=== PATIENT | male | born 1975 | race Caucasian/White ===

== ENCOUNTER 2020-10-26 09:59 | Outpatient (NON) | payer OTHER, SELFPAY ==
[2020-10-26 22:17] LABS: SARS-CoV-2 RNA PCR Negative
== END 2020-10-26 10:00 ==
PROVIDERS: PCP Internal Medicine; Visit Provider Internal Medicine
DX: R68.89 Other general symptoms and signs (principal); Z20.822 Contact with and (suspected) exposure to COVID-19
CPT/HCPCS: C9803; U0003

== ENCOUNTER 2024-11-20 13:39 | Emergency (ER) | payer OTHER, SELFPAY ==
[2024-11-20 13:51] VITALS: BP 139/75; PULSE 98; RESP 16; TEMP 38.8; O2SAT 98
--- OUTSIDE RECORDS SUMMARY | 2024-11-20 14:29 | XMS_ITS | Referral Summary ---
Author Organization [facility] Address [address] [place] [address] Care Team Providers Care Marine Mechanic Name Role Phone Unavailable Primary Care Provider Unavailabl e Source Comments [facility],non-owned Affiliates and Associated Physician Practices is amultiple site organization consisting of ambulatory clinics and hospital sitesin [place], [place], [place] and [place]. This disclosure is being madepursuant to the Care Everywhere program and may not contain all information available regarding this patient. Last updated 18.[facility] Allergies No known active allergies Medications * Be aware that medications may not be up to date on this document. Alwaysverify current medications with the patient. Medication Sig Dispensed Refills Start Date End Date Status amLODIPine-benazepril (LOTREL) 5-20 MG capsule 12/28/2017 Active atorvastatin (LIPITOR) 40 MG tablet 08/16/2017 Active pantoprazole EC (PROTONIX) 40 MG tablet Take 40 mg by mouth Active ASPIRIN 81 PO Active Social History Tobacco Use Types Packs/Day Years Used Date Smoking Tobacco: Never Smokeless Tobacco: Never Tobacco Cessation:Counseling Given: Yes Sex and Gender Information Value Date Recorded Sex Assigned at Not on file Gender Identity Not on file Sexual Orientation Not on file Last Filed Vital Signs Vital Sign Reading Time Taken Comments Blood Pressure 128/76 11/21/2019 12:19 PM PAPER COATING SUPERVISOR Pulse 79 11/21/2019 12:19 PM PAPER COATING SUPERVISOR Temperature 37.5 ??C (99.5 ??F) 11/21/2019 12:[address] Respiratory Rate 16 11/21/2019 12:19 PM PAPER COATING SUPERVISOR Oxygen Saturation 98% 11/21/2019 12:19 PM PAPER COATING SUPERVISOR Inhaled Oxygen Concentration - - Weight 124.7 kg (275 lb) 11/21/2019 12:19 PM PAPER COATING SUPERVISOR Height 182.9 cm (6') 11/21/2019 12:19 PM PAPER COATING SUPERVISOR Body Mass Index 37.3 11/21/2019 12:19 PM PAPER COATING SUPERVISOR Plan of Treatment Not on file Damian Ta Personal/Family Self 1975 [address] [place] [address]
--- OUTSIDE RECORDS SUMMARY | 2024-11-20 14:29 | XMS_ITS | Clinical Summary ---
Author Organization [facility] Address [address] [place] [address] Phone Care Team Providers Care Funeral Planning Counselor Name Role Phone Anju Jiménez APRN, MEREDITH Primary Care P rovider Brandon Almanza MD Unavailable Allergies No known active allergies Medications aspirin EC 81 MG Tablet Delayed Response Take 81 mg by mouth daily. Active Cholecalciferol (VITAMIN D PO) Take 1 Tablet by mouth once a week. Active Trintellix 20 MG Tablet Take 1 Tablet by mouth daily. 2 Active busPIRone (BUSPAR) 10 MG Tablet Take 10 mg by mouth 2 times daily. 2 Active metoprolol Succinate (TOPROL-XL) 50 MG TABLET SR 24 HRIndications:Ess ential hypertension Take 1 Tablet by mouth daily. 90 Tablet 3 3 Active cetirizine (ZyrTEC) 10 MG TabletIndications :Irritant contact dermatitis due to plants, except food Take 1 Tablet by mouth daily. 4 Active pantoprazole (PROTONIX) 40 MG Tablet Delayed Response Take 1 tablet by mouth once daily 90 Tablet 1 4 Active amLODIPine-benaze pril (LOTREL) 5-20 MG CapsuleIndication s:Essential hypertension,TIA (transient ischemic attack) TAKE 1 CAPSULE BY MOUTH NIGHTLY 90 Capsule 4 Active atorvastatin (LIPITOR) 80 MG TabletIndications :Essential hypertension,TIA (transient ischemic attack) Take 1 Tablet by mouth daily. 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, 10-15 excised in the past, several lesions on scalp today concerning for BCC, shave biopsy x 6 performed, sun protection, regular MD skin exams, RTC 3 months Resolved Problems Problem Noted Date Diagnosed Date Resolved Date Hypersomnia 11/23/2017 09/12/2022 Encounters Date Type Department Care Team Description 09/07/2024 MyChart RX Renewal [facility] [address] [place] [address] Anju Jiméenz APRN, CNP Medication Renewal Reviewed 09/02/2024 Refill [facility] [address] [place] [address] Anju Jiménez APRN, CNP Medication Refill from Last 3 Months Immunizations Immunization Administration Dates Next Due COVID-19, Mrna, Lnp-s, Pf, 5 0 mcg/0.5 mL 09/07/2024 Covid-19, Mrna, Lnp-s, PF, 1 00 mcg/0.5 mL Dose (Moderna) 12/31/2020,12/03/2020 Covid-19, Mrna, Lnp-s, Pf, 5 0 Mcg/0.5 Ml Dose 07/27/2023 Influenza Vaccine, Quadrivalent, PF 06/23,07/20/2023,07/28/2022,2020,07/30/2020,07/12/2018,07/27/2017 Influenza,Split Virus,Trivalent,Injectable,PF 07/09/2024 TDAP Vaccine 02/17/2021 Family History Medical History Relation Name Comments Clotting Disorder Father Diabetes Father Cancer Maternal Cousin testicular Clotting Disorder Paternal Aunt Clotting Disorder Paternal Grandfather Clotting Disorder Paternal Uncle Relation Name Status Comments Father Alive Maternal Cousin Mother Alive Paternal Aunt Paternal Grandfather Paternal Uncle Social History Tobacco Use Types Packs/Day Years Used Date Smoking Tobacco: Never Smokeless Tobacco: Never Tobacco Cessation:Counseling Given: Not Answered Alcohol Use Standard Drinks/Week Comments Never 0 (1 standard drink = 0.6 oz pur e alcohol) [facility] Utilities Answer Date Recorded In the past 12 months has e electric, gas, oil, or water [employer] threatened to shut off services in your home? No 03/24/2024 Social Connection and Isolat ion Panel [NHANES] Answer Date Recorded In a typical week, how many times do you talk on the phone with family, friends, or neighbors? More than three times a week 03/24/2024 How often do you get togethe r with friends or relatives? Twice a week 03/24/2024 How often do you attend chur ch or worship services? Never 03/24/2024 Do you belong to any clubs o r organizations such as yazidism groups, unions, fraternal or athletic groups, or school groups? No 03/24/2024 How often do you attend meet ings of the clubs or organizations you belong to? Never 03/24/2024 Are you , , di vorced, , never , or living with a partner? 03/24/2024 AUDIT-C Answer Date Recorded Q1: How often do you have a drink containing alc ohol? Monthly or less 03/24/2024 Q2: How many drinks containi ng alcohol do you have on a typical day when you are drinking? 1 or 2 03/24/2024 Q3: How often do you have si x or more drinks on one occasion? Never 03/24/2024 Overall Financial Resource Strain (CARDIA) Answe r Date Recorded How hard is it for you to pa y for the very basics like food, housing, medical care, and heating? Not hard at all 03/24/2024 PHQ-2 Answer Date Recorded Total Score - Questions 1-9 5 04/2021 [facility] of Occupat ional Health - Occupational Stress Questionnaire Answer Date Recorded Do you feel stress - tense, restless, nervous, or anxious, or unable to sleep at night because your mind is troubled all the time - these days? Only a little 03/24/2024 Exercise Vital Sign Answer Date Recorde d On average, how many days pe r week do you engage in moderate to strenuous exercise (like a brisk walk)? 0 days 03/24/2024 On average, how many minutes do you engage in exercise at this level? 0 min 03/24/2024 Hunger Vital Sign Answer Date Recorded Within the past 12 months, y ou worried that your food would run out before you got the money to buy more. Never true 03/24/20 24 Within the past 12 months, t he food you bought just didn't last and you didn't have money to get more. Never true 03/24/2024 PRAPARE - Transportation Answer Date Re corded In the past 12 months, has l ack of transportation kept you from medical appointments or from getting medications? No 11/2023 In the past 12 months, has l ack of transportation kept you from meetings, work, or from getting things needed for daily living? No 03/24/2024 Housing Stability Vital Sign Answer John e Recorded In the last 12 months, was t here a time when you were not able to pay the mortgage or rent on time? No 03/24/2024 In the last 12 months, how many places have you lived? 1 03/24/2024 In the last 12 months, was t here a time when you did not have a steady place to sleep or slept in a fci (including now)? No 03/24/2024 Education Answer Date Recorded What is the highest level of school you have completed or the highest degree you have received? Associate degree: occupational, technical, or vocational program 03/06/2023 Sexually Active Control Partners Comments Not Currently Female Sex and Gender Information Value Date Recorded Sex Assigned at Male 12/26/2023 4:03 PM UNDERWRITING CLERKS SUPERVISOR Legal Sex Male 11:25 PM CDT Gender Identity Male 12/26/2023 4:03 PM UNDERWRITING CLERKS SUPERVISOR Sexual Orientation Straight 12/26/2023 4: 03 PM UNDERWRITING CLERKS SUPERVISOR Occupation Industry Job Start Date Job End Date [employer] Not on file Not on file Not on file Last Filed Vital Signs Vital Sign Reading Time Taken Comments Blood Pressure 114/86 07/09/2024 1:40 PM CDT Pulse 62 07/09/2024 1:40 PM CDT Temperature 37 ??C (98.6 ??F) 07/09/2024 1:40 PM CDT Respiratory Rate 20 07/09/2024 1:40 PM CDT Oxygen Saturation 99% 07/09/2024 1:40 PM CDT Inhaled Oxygen Concentration - - Weight 137.2 kg (302 lb 6 oz) 07/09/2024 1:40 PM CDT Height 182.9 cm (6') 07/09/2024 1:40 PM CDT Body Mass Index 41.01 07/09/2024 1:40 PM CDT Plan of Treatment Health Maintenance Due Date Last Done Comments Colonoscopy 06/21/2027 06/21/2022 Colorectal Cancer Screening 06/21/2027 Td Immunization Every 10 Years (Adults With 1 Tdap) 02/17/2031 02/17/2021 Respiratory Syncytial Virus (RSV) Immunization (Adult) (1 - 1-dose 75+ series) 2051 06/21/2022 DTaP/Tdap/Td Immunization Discontinued 02/17/2021 Hepatitis C Virus (HCV) Screening Completed 09/11/2023 Influenza Immunization Completed 4, 07/09/2024, 07/20/2023, Additional history exists SARS-COV-2 Immunization Completed 09/07/20 24, 07/27/2023, 07/27/2023, Additional history exists Hepatitis B Immunization Discontinued Meningococcal Immunization (ACWY) Aged Out No longer eligible based on patient's age to complete this topic Pneumococcal Immunization Combined Aged Out No longer eligible based on patient's age to complete this topic Rotavirus Immunization Aged Out No lo nger eligible based on patient's age to complete this topic Goals Goal Patient Goal Type Associated Problems Recent Progress Patient-Stated? Author I need a place to talk about the divorce and what happened. Behavioral Health On track( 024 9:22 AM UNDERWRITING CLERKS SUPERVISOR) Yes Nelly Mendieta LCSW Note: Goal/Objective: Improve coping with pending separation/divorce. Anticipated Time Frame for Goal Completion: 6 months Goal Reviewed with: patient Readiness to change: Ready to change Department associated with goal: [facility] Steps to achieve goal: will attend psychotherapy/counseling monthly at least 6 sessions and self disclose to have an outlet for distressing thoughts and feelings. will build insight regarding triggers, both internal and external; pt will be able to identify at least two internal and two external triggers to low and anxious moods. Will identify at least two skills/strategies to use when a triggering event occurs Behavioral Health No Nelly Mendieta, ATG ARCHITECT Procedures Procedure Name Priority Date/Time Associated Diagnosis Comments HEPATITIS C ANTIBODY Routine 09/11/2023 8:04 AM UNDERWRITING CLERKS SUPERVISOR Encounter for HCV screening test for low risk patient from Last 3 Months or Most Recently Relevant to Health Maintenance Results * HEPATITIS C ANTIBODY (09/11/2023 8:04 AM UNDERWRITING CLERKS SUPERVISOR) hepatitis C antibody 0.09 <1 S/CO [facility] ARCH [id number] B 09/11/2023 9:14 PM UNDERWRITING CLERKS SUPERVISOR [facility] Comment: Signal/Cutoff ratio ??< 0.79 is Nondetected Signal/Cutoff ratio 0.80-0.99 is Grayzone Signal/Cutoff ratio > 0.99 is Detected Supplemental assays are recommended if signal/cutoff ratio is >/=1.00. ??Signal/cutoff ratio result >/= 5.00 is 97% predictive of positivity for recombinant immunoblot assay (RIBA) and will be reported to the [place] Department of Public Health as required. Blood Venipuncture / Unknown 09/11/2023 8:04 AM UNDERWRITING CLERKS SUPERVISOR 09/11/2023 8:04 AM UNDERWRITING CLERKS SUPERVISOR us Anju Jiménez APRN, MEREDITH CHEMISTRY ORDER TYREE Final Result [facility] [address] [place] [address], [place] from Last 3 Months or Most Recently Relevant to Health [place] [id number] [place] [id number] [employer] Care Teams Funeral Planning Counselor Relationship Specialty Start Date End Date Anju Jiménez APRN, BIOMEDICAL INSTRUMENT TECHNICIAN [address] [place] [address] PCP - General Advanced Practice Nurse 02/17/21 Brandon Almanza MD [address] [phone] Consulting Physician General Surgery 04/05/22
--- OUTSIDE RECORDS SUMMARY | 2024-11-20 14:29 | XMS_ITS | Encounter Summary ---
Author Organization [facility] Address [address] [place] [address] Phone Care Team Providers Care Internet Marketing Coordinator Name Role Phone Anju Jiménez APRN, CNP Primary Care P rovider Brandon Almanza MD Unavailable [phone] Reason for Visit * Reason Comments Medication Refill Encounter Details Date Type Department Care Team (Late st Contact Info) Description 02/03/2024 Refill [facility] - Primary Care - [place] [address] [place] [address] Anju Jiménez APRN, CNP [address] [place] [address] Medication Refill Social History Tobacco Use Types Packs/Day Years Used Date Smoking Tobacco: Never Smokeless Tobacco: Never Alcohol Use Standard Drinks/Week Comments Never 0 (1 standard drink = 0.6 oz pur e alcohol) [facility] Utilities Answer Date Recorded In the past 12 months has [employer], gas, oil, or water company threatened to shut off services in your home? No 12/22/2023 Social Connection and Isolat ion Panel [NHANES] Answer Date Recorded In a typical week, how many times do you talk on the phone with family, friends, or neighbors? More than three times a week 12/22/2023 How often do you get togethe r with friends or relatives? More than three times a week 12/22/2023 How often do you attend chur ch or restorationist services? 1 to 4 times per year 12/22/2023 Do you belong to any clubs o r organizations such as pentecostalism groups, unions, fraternal or athletic groups, or school groups? No 12/22/2023 How often do you attend meet ings of the clubs or organizations you belong to? 1 to 4 times per year 12/22/2023 Are you , , di vorced, , never , or living with a partner? 12/22/2023 AUDIT-C Answer Date Recorded Q1: How often do you have a drink containing alcohol? Never 12/22/2023 Q2: How many drinks containi ng alcohol do you have on a typical day when you are drinking? Patient does not drink Q3: How often do you have si x or more drinks on one occasion? Never 12/22/2023 Overall Financial Resource Strain (CARDIA) Answe r Date Recorded How hard is it for you to pa y for the very basics like food, housing, medical care, and heating? Not very hard 12/22/2023 PHQ-2 Answer Date Recorded Total Score - Questions 1-9 5 04/2021 [facility] of Occupat ional Health - Occupational Stress Questionnaire Answer Date Recorded Do you feel stress - tense, restless, nervous, or anxious, or unable to sleep at night because your mind is troubled all the time - these days? Not at all 12/22/2023 Exercise Vital Sign Answer Date Recorde d On average, how many days pe r week do you engage in moderate to strenuous exercise (like a brisk walk)? 3 days 12/22/2023 On average, how many minutes do you engage in exercise at this level? 60 min 12/22/2023 Hunger Vital Sign Answer Date Recorded Within the past 12 months, y ou worried that your food would run out before you got the money to buy more. Never true 12/22/19 24 Within the past 12 months, t he food you bought just didn't last and you didn't have money to get more. Never true 12/22/2023 PRAPARE - Transportation Answer Date Re corded In the past 12 months, has l ack of transportation kept you from medical appointments or from getting medications? No 10/2023 In the past 12 months, has l ack of transportation kept you from meetings, work, or from getting things needed for daily living? No 12/22/2023 Housing Stability Vital Sign Answer John e Recorded In the last 12 months, was t here a time when you were not able to pay the mortgage or rent on time? No 12/22/2023 In the last 12 months, how many places have you lived? 2 12/22/2023 In the last 12 months, was t here a time when you did not have a steady place to sleep or slept in a nursing home (including now)? No 12/22/2023 Education Answer Date Recorded What is the highest level of school you have completed or the highest degree you have received? Associate degree: occupational, technical, or vocational program 03/06/2023 Sexually Active Control Partners Comments Not Currently Female Sex and Gender Information Value Date Recorded Sex Assigned at Male 12/26/2023 4:03 PM EXHIBIT CLEANER Legal Sex Male 11:25 PM CDT Gender Identity Male 12/26/2023 4:03 PM EXHIBIT CLEANER Sexual Orientation Straight 12/26/2023 4: 03 PM EXHIBIT CLEANER Occupation Industry Job Start Date Job End Date [employer] Not on file Not on file Not on file documented as of this encounter Miscellaneous Notes * Telephone Encounter - Nilesh Elizabeth RN - 02/05/2024 1:36 PM CDT Medication(s) [facility] and [facility] Chronic Medication Refill Standing Order for Pediatricand Adult Patients. Requested Prescriptions Pending Prescriptions Disp Refills pantoprazole (PROTONIX) 40 MG Tablet Delayed Response [Pharmacy Med Name: Pantoprazole Sodium 40 MGOral Tablet Delayed Release] 90 Tablet 0 Sig: Take 1 tablet by mouth once daily Proton Pump Inhibitors Protocol Passed - 02/03/2024 7:19 PM Passed - Visit with relevant provider in past 12 months or upcoming 90 days Recent Visits Date Type Provider Dept 12/22/23 Office Visit Romaine Matos, PAC [facility] 09/18/23 Office Visit Anju Jiménez, PHARMACY SALESPERSON, INSURANCE ADJUSTOR [facility] 03/13/23 Office Visit Anju Jiménez APRN, CNP [facility] Showing recent visits within past 365 days and meeting all other requirements Future Appointments Date Type Provider Dept 03/19/24 Appointment Lab, [facility] 03/26/24 Appointment Anju Jiménez APRN, CNP [facility] Showing future appointments within next 90 days and meeting all other requirements documented in this encounter Plan of Treatment Not on file documented as of this encounter Goals Goal Patient Goal Type Associated Problems Recent Progress Patient-Stated? Author I need a place to talk about the divorce and what happened. Behavioral Health On track( 024 9:22 AM EXHIBIT CLEANER) Yes Nelly Mendieta LCSW Note: Goal/Objective: Improve coping with pending separation/divorce. Anticipated Time Frame for Goal Completion: 6 months Goal Reviewed with: patient Readiness to change: Ready to change Department associated with goal: [facility] Steps to achieve goal: [...] triggering event occurs Behavioral Health No Nelly Mendieta LCSW documented as of this encounter Visit Diagnoses Not on filedocumented in this encounter Additional Health Concerns Assessment Noted Time PHQ-9 Depression Total Score: 5 03/29/20 21 2:00 PM CDT documented as of this encounter Care Teams Internet Marketing Coordinator Relationship Specialty Start Date End Date Anju Jiménez APRN, CNP [address] [place] [address] PCP - General Advanced Practice Nurse 02/17/21 Brandon Almanza MD [address] [phone] Consulting Physician General Surgery 04/05/22 documented as of this encounter
--- OUTSIDE RECORDS SUMMARY | 2024-11-20 14:29 | XMS_ITS | Clinical Summary ---
Author Organization [facility] Address [address] [facility] [address] [place] [address] Phone Care Team Providers Care Recruiter Name Role Phone Aguilar Medel MD, Jhon Renae Primary Care Provider Adolph Guajardo MD Unavailable [phone] Allergies No known active allergies Medications aspirin 81 mg tablet Take 1 tablet (81 mg total) by mouth daily Active atorvastatin (LIPITOR) 80 mg tablet Take 1 tablet (80 mg total) by mouth daily 30 tablet 9 Active amlodipine-benazepr il (LOTREL 5-20) 5-20 mg per capsule Take 1 capsule by mouth daily 9 Active busPIRone (BUSPAR) 10 mg tablet Take 1 tablet (10 mg total) by mouth 2 (two) times a day 1 Active Trintellix 20 mg tablet Take 1 tablet (20 mg total) by mouth daily 2 Active metoprolol XL (TOPROL-XL) 50 mg extended release tablet Take 1 tablet (50 mg total) by mouth daily [address] (PROTONIX) 40 mg EC tablet Take 1 tablet (40 mg total) by mouth daily 3 Active cholecalciferol (VITAMIN D-3) 71853 unit tablet Take 1,250 mcg by mouth every 7 days Active HYDROcodone-acetami nophen (NORCO) 5-325 mg per tabletIndications:P ain Take 1 tablet by mouth every 6 (six) hours as needed for pain 20 tablet 3 Active ondansetron ODT (ZOFRAN-ODT) 8 mg disintegrating tabletIndications:P revention of Post-Operative Nausea and Vomiting Take 1 tablet (8 mg total) by mouth every 8 (eight) hours as needed for nausea or vomiting 12 tablet 1 3 Active semaglutide (Wegovy) 0.25 mg/0.5 mL auto-injector Inject 0.5 mL (0.25 mg total) under the skin every 7 days Active cetirizine (ZyrTEC) 10 mg tablet Take 1 tablet (10 mg total) by mouth daily 4 Active sildenafiL (VIAGRA) 100 mg tablet Take 0.5 tablets (50 mg total) by mouth as needed 3 Active Active Problems Problem Noted Date Diagnosed Date Lipoma of flank 06/16/2023 Adjustment disorder 10/03/2022 Generalized anxiety disorder 05/06/2021 Major depression 05/06/2021 Psychophysiological insomnia 05/06/2021 Bipolar 2 disorder (CMS/HCC) 03/29/2021 High blood pressure 02/17/2021 History of stroke 10/31/2018 Obesity (BMI 30-39.9) 10/31/2018 Basal cell carcinoma 03/26/2018 Basal cell carcinoma of skin of scalp and neck 0 03/26/2018 Obstructive sleep apnea syndrome 11/23/2017 Severe obesity (BMI 35.0-35.9 with comorbidity) 11/23/2017 Hypersomnia 11/23/2017 History of nonmelanoma skin cancer 07/21/2017 Overview (02/02/2018): Description: history of whole brain radiation as a child, with the development of numerous BCCs on the scalp, 10-15 excised in the past, several lesions on scalp today concerning for BCC, shave biopsy x 6 performed, sun protection, regular MD skin exams, RTC 3 months Folliculitis 05/16/2011 Overview (02/02/2018): Description: Folliculitis Skin neoplasm 05/16/2011 Overview (02/02/2018): Description: Shave biopsy x 6 today for several concerning lesions on scalp. Wound care reviewed. F/u per pathology. Will more than likely need MMS. 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 Monthly or less 06/16/2023 Q2: How many drinks containi ng alcohol do you have on a typical day when you are drinking? 1 or 2 06/16/2023 Q3: How often do you have si x or more drinks on one occasion? Never 06/16/2023 PHQ-2 Answer Date Recorded PHQ-2 Score 0 06/15/2019 Personal Safety Answer Date Recorded Have you ever been in or are you currently in a harmful physical or emotional relationship or is someone making you feel afraid or unsafe? Denies 06/22/2023 Sex and Gender Information Value Date Recorded Sex Assigned at Not on file Legal Sex Male 11:50 PM DESIGN ANALYST Gender Identity Male 10/28/2020 2:30 PM DESIGN ANALYST Sexual Orientation Straight 10/28/2020 2: 30 PM DESIGN ANALYST Obstetrics History Last Filed Vital Signs Vital Sign Reading Time Taken Comments Blood Pressure 129/80 06/10/2024 9:55 AM CDT Pulse 68 06/10/2024 9:55 AM CDT Temperature 36.4 ??C (97.5 ??F) 06/22/2023 9:38 AM CD T Respiratory Rate 18 06/22/2023 9:45 AM CDT Oxygen Saturation 94% 06/10/2024 9:55 AM CDT Inhaled Oxygen Concentration - - Weight 135.2 kg (298 lb) 06/10/2024 9:55 AM CDT Height 182.9 cm (6') 06/10/2024 9:55 AM CDT Body Mass Index 40.42 06/10/2024 9:55 AM CDT Plan of Treatment Health Maintenance Due Date Last Done Comments Colon Cancer Screening-Colonoscopy 1976 Hepatitis C Screening 1976 Hepatitis B Screening 1994 Regular Well Visit/Exam 18-64 1994 Depression Screening 12/28/2019 12/27/2018 Covid-19 Vaccine ( season) 2024 12/31/2020, 12/03/2020 Influenza Vaccine (#1) 2024 3, 07/28/2022, 07/29/2021, Additional history exists DTaP/Tdap/Td Vaccine (2 - Td or Tdap) 02/17/2031 02/17/2021 Pneumococcal vaccine <65 Aged Out No longer eligible based on patient's age to complete this topic Insurance [facility] CHOICE PLUS [facility] [employer] [facility] [employer] Advance Directives For more information, please contact: [phone] * Full Code (Latest Code Status on File) Date Activated Date Inactivated Comments 12/27/2018 10:07 PM 12/29/2018 6:56 PM Care Teams Recruiter Relationship Specialty Start Date End Date Jhon Sheikh Jr., MD [address] [place] [address] PCP - General 09/25/17 Adolph Guajardo MD [address] [place] [address] [place] [address] Consulting Physician Neurology 12/29/18
--- OUTSIDE RECORDS SUMMARY | 2024-11-20 14:29 | XMS_ITS | Encounter Summary ---
Author Organization [facility] Address [address] [place] [address] Phone Care Team Providers Care Head Worker Name Role Phone Day Stanley MD Primary Care Provider [phone] Aguilar Medel MD, Jhon Renae Primary Care Provider Adolph Guajardo MD Unavailable [phone] Encounter Details Date Type Department Care Team (Late st Contact Info) Description 09/23/2017 Orders Only [facility] ProviderCarlos MD [address] [id number] Social History Tobacco Use Types Packs/Day Years Used Date Smoking Tobacco: Never Smokeless Tobacco: Never Alcohol Use Standard Drinks/Week Comments No 0 (1 standard drink = 0.6 oz pur e alcohol) Sex and Gender Information Value Date Recorded Sex Assigned at Not on file Legal Sex Male 11:50 PM MEN'S FURNISHINGS SALESPERSON Gender Identity Male 10/28/2020 2:30 PM MEN'S FURNISHINGS SALESPERSON Sexual Orientation Straight 10/28/2020 2: 30 PM MEN'S FURNISHINGS SALESPERSON documented as of this encounter Plan of Treatment Not on file documented as of this encounter Procedures Procedure Name Priority Date/Time Associated Diagnosis Comments DISCHARGE LABORATORY CUMULATIVE REPORT 09/23/2017 12:00 AM MEN'S FURNISHINGS SALESPERSON documented in this encounter Results * DISCHARGE LABORATORY CUMULATIVE REPORT (09/23/2017 12:00 AM MEN'S FURNISHINGS SALESPERSON) Narrative 09/23/2017 12:00 AM MEN'S FURNISHINGS SALESPERSON Ordered by an unspecified provider. 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
--- OUTSIDE RECORDS SUMMARY | 2024-11-20 14:29 | XMS_ITS | Referral Summary ---
Author Organization [facility] Address [address] [facility] [address] [place] [address] Phone Care Team Providers Care Applications Developer Name Role Phone Aguilar Medel MD, Jhon Renae Primary Care Provider Adolph Guajardo MD Unavailable [phone] Allergies No known active allergies Medications aspirin [...] mouth daily 3 Active cholecalciferol (VITAMIN D-3) 29487 unit tablet Take 1,250 mcg by mouth [...] need MMS. 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 Gender Identity Male 10/28/2020 2:30 PM SUPERVISOR [employer] Sexual Orientation Straight 10/28/2020 2: 30 PM SUPERVISOR [employer] FARMING Last Filed Vital Signs Vital Sign Reading [...] 06/10/2024 9:55 AM CDT Plan of Treatment Not on file Insurance [facility] CHOICE PLUS [facility] [employer] [facility] [employer] Advance Directives For more information, please contact: [phone] * Full Code (Latest Code Status on File) Date Activated Date Inactivated Comments 12/27/2018 10:07 PM 12/29/2018 6:56 PM Care Teams Applications Developer Relationship Specialty Start Date End Date Jhon Sheikh Jr., MD [address] [place] [address] PCP - General 09/25/17 Adolph Guajardo MD [address] [facility] [address] ALAN[place] [address] [place] [address] Consulting Physician Neurology 12/29/18
--- OUTSIDE RECORDS SUMMARY | 2024-11-20 14:29 | XMS_ITS ---
Author Organization [facility] Address [address] [facility] [address] [place] [address] Phone Care Team Providers Care Hat Brusher Machine Name Role Phone Aguilar Medel MD, Jhon Renae Primary Care Provider Adolph Guajardo MD Unavailable [phone] Active Problems Problem Noted Date Diagnosed Date [...] need MMS. TIA (transient ischemic attack) Paresthesia Current Oncology Plans No current plan information found. Past Plans No past plan information found. Radiation Treatments * No radiation treatments are documented for this [facility]. Treatments may have been administered in another system. Lifetime Dose Tracking * Chemical Lifetime Dose Automatic Entry Manual Entr y Fluoro Time 0.1 minutes 0.1 minutes 0 minutes Air kerma at the reference point (Ka,r) 4.5 mGy 4 .5 mGy 0 mGy
--- OUTSIDE RECORDS SUMMARY | 2024-11-20 14:29 | XMS_ITS | Patient Health Summary ---
Author Organization [facility] Address [address] [place] [address] Care Team Providers Care Urology Physician Name Role Phone Unavailable Primary Care Provider Unavailabl e Note from [facility],non-owned Affiliates and Associated Physician Practices is amultiple site organization consisting of ambulatory clinics and hospital sitesin [place], [place], [place] and [place]. This disclosure is being madepursuant to the Care Everywhere program and may not contain all information available regarding this patient. Last updated 18.[facility] Allergies No known active allergies Medications * Be aware that medications may not be up to date on this document. Alwaysverify current medications with the patient. * amLODIPine-benazepril (LOTREL) 5-20 MG capsule(Started 12/28/2017) * atorvastatin (LIPITOR) 40 MG tablet(Started 08/16/2017) * pantoprazole EC (PROTONIX) 40 MG tablet Take 40 mg by mouth * ASPIRIN 81 PO Social History Tobacco Use Types Packs/Day Years Used Date Smoking Tobacco: Never Smokeless Tobacco: Never Tobacco Cessation:Counseling Given: Yes Sex and Gender Information Value Date Recorded Sex Assigned at Not on file Gender Identity Not on file Sexual Orientation Not on file Last Filed Vital Signs Vital Sign Reading Time Taken Comments Blood Pressure 128/76 11/21/2019 12:19 PM INSULATION INSPECTOR Pulse 79 11/21/2019 12:19 PM INSULATION INSPECTOR Temperature 37.5 ??C (99.5 ??F) 11/21/2019 12:[address] Respiratory Rate 16 11/21/2019 12:19 PM INSULATION INSPECTOR Oxygen Saturation 98% 11/21/2019 12:19 PM INSULATION INSPECTOR Inhaled Oxygen Concentration - - Weight 124.7 kg (275 lb) 11/21/2019 12:19 PM INSULATION INSPECTOR Height 182.9 cm (6') 11/21/2019 12:19 PM INSULATION INSPECTOR Body Mass Index 37.3 11/21/2019 12:19 PM INSULATION INSPECTOR Procedures * INFLUENZA A+B - POINT OF CARE (AMB)(Performed 11/21/2019) Performed for Viral illness * STREP A SCREEN - POINT OF CARE (AMB) STL(Performed 11/21/2019) Performed for Acute pharyngitis, unspecified etiology * STREP A SCREEN - POINT OF CARE (AMB) STL(Performed 12/13/2018) Performed for Acute streptococcal pharyngitis Results * STREP A SCREEN - POINT OF CARE (AMB) STL (11/21/2019) Only the most recent of2 resultswithin the time period is included. Strep A Rapid POCT Negative Negative Strep A Internal Control Present Lot # [id number] Expiration Date 03/22/2021 Throat ENTIRE THROAT (SURFACE REGION OF NECK) / Unknown 11/21/2019 Iva Camp BENEFITS ADVISOR-CAROUSEL ATTENDANT LAB - POINT O F CARE ORDERABLES * INFLUENZA A+B - POINT OF CARE (AMB) (11/21/2019) Influenza A Antigen Rapid Negative Negative Influenza B Antigen Rapid Negative Negative Influenza Internal Control neg/pos NEGATIVE - POSITIVE Influenza Lot Number [id number] Influenza Expiration Date 08/06/2021 Other NASOPHARYNGEAL SWAB / Unknown 11/21/2019 Iva Camp BENEFITS ADVISOR-CAROUSEL ATTENDANT LAB - POINT O F CARE ORDERABLES
--- OUTSIDE RECORDS SUMMARY | 2024-11-20 14:29 | XMS_ITS | Patient Health Record ---
Author Organization [facility] Address [address] [place] [address] Care Team Providers Care Harness Preparer Name Role Phone Gilberto Woods Primary Care Provider Reason For Referral No Information Immunizations Vaccine Route Administration Date Status Comme nts COVID-19 Moderna 2nd IM Intramuscular 12/31/2020 Administered COVID-19 Moderna 1ST IM Intramuscular 12/03/2020 Administered EUA date 0. Screening reviewed and consent signed. Patient tolerated well. Plan Of Treatment No Information Insurance Providers Payer Name Payer Address Payer Phone Subscriber Number Group Number Insured Name Patient Relationship to Insured Coverage Start Date Coverage End Date [facility] [address] [place] [address] [id number] Damian Ta Self - patient is the insured 1
--- OUTSIDE RECORDS SUMMARY | 2024-11-20 14:29 | XMS_ITS | Clinical Summary ---
Author Organization [facility] Address [address] [place] [address] Care Team Providers Care Carpenters Supervisor Name Role Phone Unavailable Primary Care Provider Unavailabl e Source Comments [facility],non-owned Affiliates and Associated Physician Practices is amultiple site organization consisting of ambulatory clinics and hospital sitesin [place], [place], [place] and [place]. This disclosure is being madepursuant to the Care Everywhere program and may not contain all information available regarding this patient. Last updated 18.[facility] Allergies No known active allergies Medications * [...] Comments Blood Pressure 128/76 11/21/2019 12:19 PM PRINCIPAL BIOSTATISTICIAN Pulse 79 11/21/2019 12:19 PM PRINCIPAL BIOSTATISTICIAN Temperature 37.5 ??C (99.5 ??F) 11/21/2019 12:[address] Respiratory Rate 16 11/21/2019 12:19 PM PRINCIPAL BIOSTATISTICIAN Oxygen Saturation 98% 11/21/2019 12:19 PM PRINCIPAL BIOSTATISTICIAN Inhaled Oxygen Concentration - - Weight 124.7 kg (275 lb) 11/21/2019 12:19 PM PRINCIPAL BIOSTATISTICIAN Height 182.9 cm (6') 11/21/2019 12:19 PM PRINCIPAL BIOSTATISTICIAN Body Mass Index 37.3 11/21/2019 12:19 PM PRINCIPAL BIOSTATISTICIAN Plan of Treatment Health Maintenance Due Date Last Done Comments COLOGUARD (AGES 45-75) - COL ON CA SCREENING 1976 COLON MONITORING 1976 COLONOSCOPY - COLON CA SCREENING 1976 CT COLONOGRAPHY - COLON CA SCREENING 1976 Colorectal Cancer Screening 1976 FIT - COLON CA SCREENING 1976 FLEX SIG - COLON CA SCREENING 1976 HIV SCREENING 1991 HEPATITIS C SCREENING 09/14/1994 DTAP/TDAP/TD VACCINES (1 - Tdap) 1995 HEPATITIS B VACCINE (1 of 3 - 19+ 3-dose series) 1995 SCREENING FOR DIABETES 09/24/2018 COVID-19 VACCINE ( - 2023-2 5 season) 2024 INFLUENZA VACCINE (#1) 2024 DEPRESSION SCREENING 10/23/2024 ZOSTER VACCINE (1 of 2) 2026 HIB VACCINE Aged Out No longer eligi ble based on patient's age to complete this topic HPV VACCINE Aged Out No longer eligi ble based on patient's age to complete this topic MENINGOCOCCAL (Group B) VACCINE Aged Out No longer eligible based on patient's age to complete this topic MENINGOCOCCAL VACCINE Aged Out No hamida queta eligible based on patient's age to complete this topic PNEUMOCOCCAL VACCINE Aged Out No long er eligible based on patient's age to complete this topic Damian Ta Personal/Family Self 1975 [address] [place] [address]
--- NOTE | 2024-11-20 14:40 | PC.NURSE ---
Brought back from lobby. Swab obtained.
--- NOTE | 2024-11-20 16:08 | ED_ITS ---
HPI - URI/Sore Throat General Chief Complaint: Upper Respiratory Infection Stated Complaint: cough/aches Time Seen by Provider: 11/20/24 15:50 Source: patient, RN notes reviewed and old records reviewed Mode of arrival: ambulatory Limitations: no limitations History of Present Illness HPI Narrative: 49 year old male who presents to [facility] care with complaints of body aches, cough, with no fevers for 2 days, has had runny nose for the past 2 weeks.. Patient reports that he has not had any fever till noted today in triage. Patient reports that he has been taking DayQuil, Robitussin, and Sudafed for his symptoms, Patient reports that he did take a flu shot this year, works in IT at [employer]. MD elicited complaint: fever (noted in triage), cough, rhinorrhea, nasal congestion and other (body aches) Onset (ago): day(s) (2 days cough ad body aches, 2 weeks nasal drainage) Severity: moderate Description of mucous: clear Able to tolerate fluids by mouth: Yes Treatments prior to arrival: other (Robitussin, Sudafed and DayQuil) Review of Systems Review of Systems: CONSTITUTIONAL:Reports malaise, no chills, sweats, or known fever. EYES: Denies visual changes, redness, or discharge ENT: Reports rhinorrhea, congestion, sinus pain, otalgia and sore throat. CARDIOVASCULAR: Denies chest pain, palpitations, or edema. RESPIRATORY: Reports cough.? Denies dyspnea. GASTROINTESTINAL: Denies abdominal pain, nausea, vomiting, diarrhea SKIN: Denies rash or itching. MUSCULOSKELETAL: Reports myalgia. NEUROLOGIC: Denies headache. 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 Leukemia Basal cell carcinoma, forehead Essential (primary) hypertension Mixed hyperlipidemia FHx: factor V Leiden mutation Outbursts of anger Surgical History Surgical History (Updated 11/08/19 @ 13:01 by Jhon Sheikh MD Lizy) S/P Mohs surgery for basal cell carcinoma Family History Family History (Updated 11/08/19 @ 13:01 by Jhon Sheikh MD Lizy) Mother Hypertension Father Family history of diabetes mellitus in first degree relative Other FHx: factor V Leiden mutation Social History Social History (Updated 11/22/24 @ 09:35 by Vee Jade NP) Smoking status: Never smoker Alcohol intake: never Substance use: never Gender identity (if verbalized by the patient): Male Comments At time of signature, agree with nursing past medical, surgical, social and fa jeffrey history. There is no relevant family history pertinent to the presenting complaint Exam Narrative: GENERAL: ill-appearing, well-nourished,obese, and in no acute distress. HEAD: Normocephalic EYES: PERRLA, conjunctivae clear ENT: Nares clear, turbinates edematous and erythematous, clear discharge, sinus pressure. Mucous membranes moist. TM pearly montero with dull light reflex bilaterally; no tragal tenderness. Oropharynx erythematous without lesions. Tonsils not enlarged and without exudate, no drooling, no hoarseness, no trismus, uvula midline post nasal drainage.. NECK: Supple. No lymphadenopathy CHEST: Clear to auscultation, breath sounds equal. No wheezing, rhonchi, rales, or stridor. No respiratory distress, speaks in full sentences.cough noted SAO2 98% on room air HEART: Regular rate and rhythm. No murmur heard. SKIN: Warm, dry, no rash. NEURO: Alert and oriented x3. PSYCH: Normal mood and affect Course Course Emergency Course: Patient is aware of diagnosis, understands and agrees to treatment plan.? Anticipatory guidance given.? Patient agrees to follow-up as directed and is aware of reasons to seek care at the emergency department. Portions of this record may have been created with voice recognition software Level of Care: Express Care Visit Vital Signs Vital signs: Vital Signs Temperature 38.8 C H 11/20/24 13:51 Pulse Rate 98 11/20/24 13:51 Respiratory Rate 16 11/20/24 13:51 Blood Pressure 139/75 11/20/24 13:51 Pulse Oximetry 98 11/20/24 13:51 Oxygen Delivery Room Air 11/20/24 13:51 Temperature 38.8 C H 11/20/24 13:51 Pulse Rate 98 11/20/24 13:51 Respiratory Rate 16 11/20/24 13:51 Blood Pressure 139/75 11/20/24 13:51 Pulse Oximetry 98 11/20/24 13:51 Oxygen Delivery Room Air 11/20/24 13:51 Reviewed MDM - URI/Sore Throat MDM Narrative Medical decision making narrative: Differential diagnosis considered: Rogers virus, strep pharyngitis, allergic rhinitis, upper respiratory tract infection, sinusitis, rhinosinusitis, nasopharyngitis. viral pharyngitis, otitis media, otitis externa, pneumonia, bronchitis, viral cough syndrome, viral syndrome, and influenza.? Exam findings show no acute concerns or changes; patient is non-toxic appearing and is in no distress.? Patient is appropriate for outpatient treatment and follow-up. Differential Diagnosis Differential diagnosis: Likely upper respiratory infection, sinusitis, viral infection, influenza and other (COVID) Medical Records Attestation: I reviewed the patient's medical records. Lab Data Attestation: I reviewed the patient's lab results. Lab results narrative: Influenza A positive, Influenza B negative, COVID antigen negative, Labs: Lab Results 11/20/24 Range/Units 16:27 POC Influenza A Ag Positive (Negative) POC Influenza B Ag Negative (Negative) POC SARS CoV-2 Ag Negative (Negative) reviewed Critical Care Time Critical Care Time Critical Care Time: No Discharge Plan Discharge Clinical Impression: Influenza A Patient Disposition: Home, Self-Care Condition: Stable Instructions: Antibiotic Form, Influenza (ED) Additional Instructions: Increase fluids especially juices and water Lfyq-uct-tapsyzy cough and cold medicine of your choice for your symptoms Tylenol or ibuprofen for any fever pain Zyrtec Claritin or Grisel daily include Coricidin brand decongestant heat to the face 20-30 minutes 4-6 times a day for pain Salt water gargles, throat lozenges or throat sprays as desired You must be fever free for 24 hours without use of Tylenol or ibuprofen before you can return to work Monitor fevers at least twice daily If your symptoms persist, change or worsen significantly before you can contact your personal physician then please, without delay, go to the emergency department for further evaluation. Follow-up with PCP in 7-10 days or sooner if needed Follow up with PCP soon in regards to your blood pressure which is elevated above threshold for referral. Blood pressure above 120/80 may indicate pre- hypertension. 139/75 Patient Language: Vietnamese Prescriptions: No Action aspirin [Adult Aspirin Regimen] 81 mg tablet,delayed release (DR/EC) 81 mg PO DAILY Qty: 90 0RF cholecalciferol (vitamin D3) 1,250 mcg (50,000 unit) capsule 1,250 mcg PO DAILY Qty: 90 0RF amlodipine-benazepril 5-20 mg capsule 1 cap PO DAILY Qty: 60 0RF Rx Instructions: Patient is due for an appt. metoprolol succinate 25 mg tablet extended release 24 hr 25 mg PO DAILY Qty: 60 0RF Rx Instructions: Patient is due for an appt. atorvastatin 80 mg tablet See Rx Instructions .ROUTE .COMPLEX Qty: 90 1RF Dose Instruction: TAKE 1 TABLET BY MOUTH DAILY Rx Instructions: TAKE 1 TABLET BY MOUTH DAILY pantoprazole 40 mg tablet,delayed release (DR/EC) 40 mg PO QAM Qty: 90 1RF divalproex [Depakote ER] 500 mg tablet extended release 24 hr 500 mg PO DAILY 90 Days Qty: 90 1RF Follow-up/Referrals: PHYSICIAN NOT ON STAFF,NONSTAFF [Primary Care Provider] - Stand Alone Forms: Work/School Release IP Time of Disposition: 16:20 Quality [place] Coma Scale Eyes: Open Verbal: Oriented and Alert Motor: Follows Commands [place] Coma Total Score: 15
[2024-11-20 16:30] LABS: EDCOVIDSCREEN Negative (Negative); EDINFLUASCREEN Positive (Negative); EDINFLUBSCREEN Negative (Negative)
== END 2024-11-20 16:32 | disposition home or self-care (01) ==
PROVIDERS: Emergency Provider Registered Nurse
DX: J10.1 Influenza due to other identified influenza virus with other respiratory manifestations (principal); Z20.822 Contact with and (suspected) exposure to COVID-19; I10 Essential (primary) hypertension; E78.2 Mixed hyperlipidemia; K21.9 Gastro-esophageal reflux disease without esophagitis; Z85.6 Personal history of leukemia; Z85.828 Personal history of other malignant neoplasm of skin
CPT/HCPCS: 87426; 87804; 99212; G0463

== ENCOUNTER 2025-01-12 09:34 | Emergency (ER) | payer OTHER, SELFPAY ==
--- OUTSIDE RECORDS SUMMARY | 2025-01-12 09:36 | XMS_ITS | Patient Health Record ---
Author Organization [facility] Address [address] [place] [address] Care Team Providers Care Decoration Checker Name Role Phone Gilberto Woods Primary Care [...] Insured Coverage Start Date Coverage End Date [facility] [address] [place] [address] [id number] Damian Ta Self - patient is the insured 1
--- OUTSIDE RECORDS SUMMARY | 2025-01-12 09:37 | XMS_ITS | Clinical Summary ---
Author Organization [facility] [employer] Address [address] [place] [address] Care Team Providers Care Android Developer Name Role Phone Unavailable Primary Care Provider Unavailabl e Source Comments [facility],non-owned Affiliates and Associated Physician Practices is amultiple site organization consisting of ambulatory clinics and hospital sitesin [place], [place], [place] and [place]. This disclosure is being madepursuant to the Care Everywhere program and may not contain all information available regarding this patient. Last updated 18.[facility] [employer] Allergies No known active allergies Medications * [...] Comments Blood Pressure 128/76 11/21/2019 12:19 PM DIRECTOR FOOD SAFETY Pulse 79 11/21/2019 12:19 PM DIRECTOR FOOD SAFETY Temperature 37.5 C (99.5 F) 11/21/2019 12:19 PM DIRECTOR FOOD SAFETY Respiratory Rate 16 11/21/2019 12:19 PM DIRECTOR FOOD SAFETY Oxygen Saturation 98% 11/21/2019 12:19 PM DIRECTOR FOOD SAFETY Inhaled Oxygen Concentration - - Weight 124.7 kg (275 lb) 11/21/2019 12:19 PM DIRECTOR FOOD SAFETY Height 182.9 cm (6') 11/21/2019 12:19 PM DIRECTOR FOOD SAFETY Body Mass Index 37.3 11/21/2019 12:19 PM DIRECTOR FOOD SAFETY Plan of Treatment Health Maintenance Due Date [...] 1995 SCREENING FOR DIABETES 09/24/2018 COVID-19 VACCINE (1 - 2023-2 5 season) 2024 INFLUENZA VACCINE (#1) 2024 DEPRESSION SCREENING 10/23/2024 ZOSTER VACCINE (1 of 2) 2026 HIB VACCINE Aged Out No longer eligi ble based on patient's age to complete this topic HPV VACCINE Aged Out No longer eligi ble based on patient's age to complete this topic MENINGOCOCCAL (Group B) VACC INE SHARED DECISION-MAKING Aged Out No longer eligibl e based on patient's age to complete this topic MENINGOCOCCAL GROUPS A/C/Y/W VACCINE Aged Out No longer eligible b ased on patient's age to complete this topic PNEUMOCOCCAL VACCINE Aged Out No long er eligible based on patient's age to complete this topic Damian Ta Personal/Family Self 1975 [address] [place] [address]
--- OUTSIDE RECORDS SUMMARY | 2025-01-12 09:37 | XMS_ITS | Referral Summary ---
Author Organization [facility] Address [address] [place] [address] Phone Care Team Providers Care Sewing Machinist Name Role Phone Aguilar Medel MD, Jhon Renae Primary Care Provider dAolph Guajardo MD Unavailable [phone] Allergies No known active allergies Medications aspirin [...] mouth daily 3 Active cholecalciferol (VITAMIN D-3) 85320 unit tablet Take 1,250 mcg by mouth [...] 05/06/2021 Psychophysiological insomnia 05/06/2021 Bipolar 2 disorder 03/29/2021 High blood pressure 02/17/2021 History of [...] on file Legal Sex Male 11:50 PM PRIOR AUTHORIZATION NURSE Gender Identity Male 10/28/2020 2:30 PM PRIOR AUTHORIZATION NURSE Sexual Orientation Straight 10/28/2020 2: 30 PM PRIOR AUTHORIZATION NURSE Last Filed Vital Signs Vital Sign Reading Time Taken Comments Blood Pressure 129/80 06/10/2024 9:55 AM CDT Pulse 68 06/10/2024 9:55 AM CDT Temperature 36.4 C (97.5 F) 06/22/2023 9:38 AM CDT Respiratory Rate 18 06/22/2023 9:45 AM CDT Oxygen Saturation 94% 06/10/2024 9:55 AM CDT Inhaled Oxygen Concentration - - Weight 135.2 kg (298 lb) 06/10/2024 9:55 AM CDT Height 182.9 cm (6') 06/10/2024 9:55 AM CDT Body Mass Index 40.42 06/10/2024 9:55 AM CDT Plan of Treatment Not on file Insurance [facility] CHOICE PLUS [facility] [employer] [facility] [employer] Advance Directives For more information, please contact: [phone] * Full Code (Latest Code Status on File) Date Activated Date Inactivated Comments 12/27/2018 10:07 PM 12/29/2018 6:56 PM Care Teams Sewing Machinist Relationship Specialty Start Date End Date Jhon Sheikh Jr., MD [address] [place] [address] PCP - General 09/25/17 Adolph Guajardo MD [address] [place] [address] [address] [place] [address] Consulting Physician Neurology 12/29/18
--- OUTSIDE RECORDS SUMMARY | 2025-01-12 09:37 | XMS_ITS ---
Author Organization [facility] Address [address] [place] [address] Phone Care Team Providers Care Painter Helper Spray Name Role Phone Aguilar Medel MD, Jhon Renae Primary Care Provider Adolph Guajardo MD Unavailable [phone] Active Problems Problem Noted Date Diagnosed Date [...] MMS. TIA (transient ischemic attack) Paresthesia Current Treatment and Therapy Plans No current plan information found. Past Treatment and Therapy Plans No past plan information found. Lifetime Dose Tracking * Chemical Lifetime Dose Automatic Entry Manual Entr y Fluoro Time 0.1 minutes 0.1 minutes 0 minutes Air kerma at the reference point (Ka,r) 4.5 mGy 4 .5 mGy 0 mGy
--- OUTSIDE RECORDS SUMMARY | 2025-01-12 09:37 | XMS_ITS | Encounter Summary ---
Author Organization [facility] Address [address] [place] [address] Phone Care Team Providers Care Guest Services Agent Name Role Phone Day Stanley MD Primary Care Provider [phone] Aguilar Medel MD, Jhon Renae Primary Care Provider Adolph Guajardo MD Unavailable [phone] Encounter Details Date Type Department Care Team (Late st Contact Info) Description 09/23/2017 Orders Only [facility] ProviderCarlos MD [address] [id number] Social History Tobacco Use Types Packs/Day Years Used Date Smoking Tobacco: Never Smokeless Tobacco: Never Alcohol Use Standard Drinks/Week Comments No 0 (1 standard drink = 0.6 oz pur e alcohol) Sex and Gender Information Value Date Recorded Sex Assigned at Not on file Legal Sex Male 11:50 PM WELDER/INSTALLER Gender Identity Male 10/28/2020 2:30 PM WELDER/INSTALLER Sexual Orientation Straight 10/28/2020 2: 30 PM WELDER/INSTALLER documented as of this encounter Plan of Treatment Not on file documented as of this encounter Procedures Procedure Name Priority Date/Time Associated Diagnosis Comments DISCHARGE LABORATORY CUMULATIVE REPORT 09/23/2017 12:00 AM WELDER/INSTALLER documented in this encounter Results * DISCHARGE LABORATORY CUMULATIVE REPORT (09/23/2017 12:00 AM WELDER/INSTALLER) Narrative 09/23/2017 12:00 AM WELDER/INSTALLER Ordered by an unspecified provider. 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
--- OUTSIDE RECORDS SUMMARY | 2025-01-12 09:37 | XMS_ITS | Encounter Summary ---
Author Organization [facility] Address [address] [place] [address] Phone Care Team Providers Care Cover Making Machine Operator Name Role Phone Anju Jiménez APRN, CNP Primary Care P rovider Brandon Almanza MD Unavailable [phone] Reason for Visit * Reason Comments Medication Refill Encounter Details Date Type Department Care Team (Late st Contact Info) Description 02/03/[address] [facility] - Primary Care - [address] [place] [address] Anju Jiménez APRN, CNP [address] [place] [address] Medication Refill Social History Tobacco Use Types Packs/Day Years Used Date Smoking Tobacco: Never Smokeless Tobacco: Never Alcohol Use Standard Drinks/Week Comments Never 0 (1 standard drink = 0.6 oz pur e alcohol) [facility] Utilities Answer Date Recorded In the past 12 months has [employer], gas, oil, or water company threatened to [...] often do you attend chur ch or jew services? 1 to 4 times per year 12/22/2023 Do you belong to any clubs o r organizations such as yarsani groups, unions, fraternal or athletic groups, or [...] Total Score - Questions 1-9 5 04/2021 [facility] - Occupational Stress [...] place to sleep or slept in a senior living (including now)? No 12/22/2023 Education Answer Date Recorded What is the highest level of school you have completed or the highest degree you have received? Associate degree: occupational, technical, or vocational program 03/06/2023 Sexually Active Control Partners Comments Not Currently Female Sex and Gender Information Value Date Recorded Sex Assigned at Male 12/26/2023 4:03 PM CADASTRAL SURVEYOR Legal Sex Male 11:25 PM CDT Gender Identity Male 12/26/2023 4:03 PM CADASTRAL SURVEYOR Sexual Orientation Straight 12/26/2023 4: 03 PM CADASTRAL SURVEYOR Occupation Industry Job Start Date Job End Date [employer] Not on file Not on file Not on file documented as of this encounter Miscellaneous Notes * Telephone Encounter - Nilesh Elizabeth RN - 02/05/2024 1:36 PM CDT Medication(s) refilled and signed per [facility] Chronic Medication Refill Standing Order for Pediatricand [...] Dept 12/22/23 Office Visit Romaine Matos, PAC [facility] 09/18/23 Office Visit Anju Jiménez, AUTOMATIC CENTRIFUGAL STATION OPERATOR, REGIONAL RETAIL SALES MANAGER [facility] 03/13/23 Office Visit Anju Jiménez APRN, CNP [facility] Showing recent visits within past 365 days and meeting all other requirements Future Appointments Date Type Provider Dept 03/19/24 Appointment Lab, [facility] 03/26/24 Appointment Anju Jiménez APRN, CNP [facility] Showing future appointments within next 90 days and meeting all other requirements documented in this encounter Plan of Treatment Not on file documented as of this encounter Goals Goal Patient Goal Type Associated Problems Recent Progress Patient-Stated? Author I need a place to talk about the divorce and what happened. Behavioral Health On track( 024 9:22 AM CADASTRAL SURVEYOR) Yes Nelly Mendieta LCSW Note: Goal/Objective: Improve coping with pending separation/divorce. Anticipated Time Frame for Goal Completion: 6 months Goal Reviewed with: patient Readiness to change: Ready to change Department associated with goal: [facility] Steps to achieve goal: [...] documented as of this encounter Care Teams Cover Making Machine Operator Relationship Specialty Start Date End Date Anju Jiménez APRN, CNP [address] [place] [address] PCP - General Advanced Practice Nurse 02/17/21 Brandon Almanza MD [address] [id number] Consulting Physician General Surgery 04/05/22 documented as of this encounter
--- OUTSIDE RECORDS SUMMARY | 2025-01-12 09:37 | XMS_ITS | Clinical Summary ---
Author Organization [facility] Address [address] [place] [address] Phone Care Team Providers Care Fabrication Operator Name Role Phone Anju Jiménez APRN, MEREDITH Primary Care P rovider Brandon Almanza MD Unavailable Allergies No known active allergies Medications aspirin EC 81 MG Tablet Delayed Response Take 81 mg by mouth daily. Active Cholecalciferol (VITAMIN D PO) Take 1 Tablet by mouth once a week. Active Trintellix 20 MG Tablet Take 1 Tablet by mouth daily. 2 Active cetirizine (ZyrTEC) 10 MG TabletIndications :Irritant contact dermatitis due to plants, except food Take 1 Tablet by mouth daily. 4 Active amLODIPine-benaze pril (LOTREL) 5-20 MG CapsuleIndication s:Essential hypertension,TIA (transient ischemic attack) TAKE 1 CAPSULE BY MOUTH NIGHTLY 90 Capsule 5 Active pantoprazole (PROTONIX) 40 MG Tablet Delayed Response Take 1 tablet by mouth once daily 90 Tablet 5 Active atorvastatin (LIPITOR) 80 MG TabletIndications :Essential hypertension,TIA (transient ischemic attack) Take 1 Tablet by mouth daily. 90 Tablet 5 Active busPIRone (BUSPAR) 10 MG Tablet Take 1 Tablet by mouth 2 times daily. 270 Tablet 1 5 Active metoprolol Succinate (TOPROL-XL) 50 MG TABLET SR 24 HRIndications:Ess ential hypertension Take 1 Tablet by mouth daily. 90 Tablet 5 Active busPIRone (BUSPAR) 10 MG Tablet Take 10 mg by mouth 2 times daily. 2 12/16/19 Discontinu ed(Reorder ) metoprolol Succinate (TOPROL-XL) 50 MG TABLET SR 24 HRIndications:Ess ential hypertension Take 1 Tablet by mouth daily. 90 Tablet 3 3 12/16/19 25 Discontinu ed(Reorder ) atorvastatin (LIPITOR) 80 MG TabletIndications :Essential hypertension,TIA (transient ischemic attack) Take 1 Tablet by mouth daily. 90 Tablet 4 12/16/19 Discontinu ed(Reorder ) Active Problems Problem Noted Date Diagnosed Date [...] Encounters Date Type Department Care Team Description 12/16/2024 Refill [facility] - [place] [address] [place] [address] Anju Jiménez APRN, CNP Medication Refill 12/08/2024 [facility] [place] [address] [place] [address] Anju Jiménez APRN, CNP Medication Refill 12/03/2024 Refill [facility] - [facility] - [place] [address] [facility] [place] [address] Anju Jiménez APRN, CNP Medication Refill from [...] drink = 0.6 oz pur e alcohol) [employer]ug[employer] Answer Date Recorded In the past 12 months has [employer], [employer], or water [employer] threatened to shut off services in your [...] week 03/24/2024 How often do you attend [facility] or mormon services? Never 03/24/2024 Do you belong to any clubs o r organizations such as orthodox groups, unions, fraternal or athletic groups, or [...] Total Score - Questions 1-9 5 04/2021 [facility] of Occupat ional [facility] - Occupational Stress Questionnaire Answer Date Recorded [...] Sex Assigned at Male 12/26/2023 4:03 PM ENGINEERING OFFICER Legal Sex Male 11:25 PM CDT Gender Identity Male 12/26/2023 4:03 PM ENGINEERING OFFICER Sexual Orientation Straight 12/26/2023 4: 03 PM ENGINEERING OFFICER Occupation Industry Job Start Date Job End Date [employer] Not on file Not on file Not on file Last Filed Vital Signs Vital Sign Reading Time Taken Comments Blood Pressure 114/86 07/09/2024 1:40 PM CDT Pulse 62 07/09/2024 1:40 PM CDT Temperature 37 C (98.6 F) 07/09/2024 1:40 PM CDT Respiratory Rate 20 [...] Behavioral Health On track( 024 9:22 AM ENGINEERING OFFICER) Yes Nelly Mendieta LCSW Note: Goal/Objective: Improve coping with pending separation/divorce. Anticipated Time Frame for Goal Completion: 6 months Goal Reviewed with: patient Readiness to change: Ready to change Department associated with goal: [facility] Steps to achieve goal: [...] occurs Behavioral Health No Nelly Mendieta LCSW Procedures Procedure Name Priority Date/Time Associated Diagnosis Comments HEPATITIS C ANTIBODY Routine 09/11/2023 8:04 AM ENGINEERING OFFICER Encounter for HCV screening test for low risk patient from Last 3 Months or Most Recently Relevant to Health Maintenance Results * HEPATITIS C ANTIBODY (09/11/2023 8:04 AM ENGINEERING OFFICER) hepatitis C antibody 0.09 <1 S/CO [facility] [id number] B 09/11/2023 9:14 PM ENGINEERING OFFICER [facility] Comment: Signal/Cutoff ratio < 0.79 is Nondetected Signal/Cutoff ratio 0.80-0.99 is Grayzone Signal/Cutoff ratio > 0.99 is Detected Supplemental assays are recommended if signal/cutoff ratio is >/=1.00. Signal/cutoff ratio result >/= 5.00 is 97% predictive of positivity for recombinant immunoblot assay (RIBA) and will be reported to the [place] [facility] of Public [facility] as required. Blood Venipuncture / Unknown 09/11/2023 8:04 AM ENGINEERING OFFICER 09/11/2023 8:04 AM ENGINEERING OFFICER us Anju Jiménez APRN, CNP CHEMISTRY ORDER TYREE Final Result [facility] [address] [place] [address], from Last 3 Months or Most Recently Relevant to Health Maintenance [place] [address] [employer] CON[employer]IATE Care Teams Fabrication Operator Relationship Specialty Start Date End Date Anju Jiménez APRN, SALES ADMINISTRATOR [address] [place] [address] PCP - General Advanced Practice Nurse 02/17/21 Brandon Almanza MD [address] [address] Consulting Physician General Surgery 04/05/22
--- OUTSIDE RECORDS SUMMARY | 2025-01-12 09:37 | XMS_ITS | Clinical Summary ---
Author Organization [facility] Address [address] [place] [address] Phone Care Team Providers Care Tufting Machine Operator Single Needle Name Role Phone Aguilar Medel MD, Jhon Renae Primary Care Provider Adolph Guajardo MD Unavailable [phone] Allergies No known active allergies Medications aspirin [...] mouth daily 3 Active cholecalciferol (VITAMIN D-3) 92577 unit tablet Take 1,250 mcg by mouth [...] Comments Stroke (HCC) Hypertension High cholesterol Cancer (HCC) leukemia and bas il cell GERD (gastroesophageal reflux disease) Bipolar disorder [...] on file Legal Sex Male 11:50 PM NECK PINNER Gender Identity Male 10/28/2020 2:30 PM NECK PINNER Sexual Orientation Straight 10/28/2020 2: 30 PM NECK PINNER Obstetrics History Last Filed Vital Signs Vital [...] 2024 12/31/2020, 12/03/2020 Influenza Vaccine (#1) 2024 , 07/28/2022, 07/29/2021, Additional history exists DTaP/Tdap/Td Vaccine (2 - Td or Tdap) 02/17/2031 02/17/2021 Pneumococcal vaccine <65 Aged Out No longer eligible based on patient's age to complete this topic Insurance [facility] [employer] [facility] [employer] Advance Directives For more information, please contact: [phone] * Full Code (Latest Code Status on File) Date Activated Date Inactivated Comments 12/27/2018 10:07 PM 12/29/2018 6:56 PM Care Teams Tufting Machine Operator Single Needle Relationship Specialty Start Date End Date Jhon Sheikh Jr., MD [address] [place] [address] PCP - General 09/25/17 Adolph Guajardo MD [address] [place] [address] [place] [address] Consulting Physician Neurology 12/29/18
[2025-01-12 09:38] VITALS: BP 108/67; PULSE 77; RESP 20; TEMP 36.9; O2SAT 100
--- NOTE | 2025-01-12 10:16 | ED.GENADULT ---
HPI - General Adult General Chief complaint: Skin/Abscess/Foreign Body Stated complaint: rash on legs moving up chest/arms Source: patient Mode of arrival: ambulatory Limitations: no limitations History of Present Illness HPI narrative: Patient presents for evaluation of a pruritic rash. Symptom onset a few weeks ago, worse in the last few days. Areas of involvement include his abdomen, and extremities x4. He has had allergic reactions to poison pilar in the past. He knows he has poison pilar at home but is not sure whether he recently came into contact with it. No new lotions, soaps, detergents or topical products. He has not tried any therapies to assist with his symptoms. He has tolerated oral steriods well in the past. Related Data Home Medications ?Medication ?Instructions ?Recorded ?Confirmed ?Last Taken ?Type buspirone 10 mg tablet mg 01/12/25 Unknown History Allergies Allergy/AdvReac Type Severity Reaction Status Date / Time No Known Allergies Allergy Verified 01/12/25 09:46 Review of Systems Review of Systems: CONSTITUTIONAL: Denies fever, chills, or sweats. EYES: Denies visual changes, redness, or discharge. ENT: Denies rhinorrhea, congestion, sore throat, or otalgia. CARDIOVASCULAR: Denies chest pain, palpitations, or edema. RESPIRATORY: Denies cough or dyspnea. GASTROINTESTINAL: Denies abdominal pain, nausea, vomiting, or diarrhea. GENITOURINARY: Denies dysuria or hematuria. SKIN: Reports pruritic rash to the abdomen extremities x4 MUSCULOSKELETAL: Denies back pain, joint pain, or myalgia. NEUROLOGIC: Denies headache, numbness, dizziness, or weakness. PSYCHIATRIC: Denies anxiety or depression. 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 Leukemia Basal cell carcinoma, forehead Essential (primary) hypertension Mixed hyperlipidemia FHx: factor V Leiden mutation Outbursts of anger Surgical History Surgical History S/P Mohs surgery for basal cell carcinoma Family History Family History Mother Hypertension Father Family history of diabetes mellitus in first degree relative Other FHx: factor V Leiden mutation Social History Social History Smoking status: Never smoker Alcohol intake: never Substance use: never Gender identity (if verbalized by the patient): Male Exam Narrative: GENERAL: Well-appearing, well-nourished, and in no acute distress. HEAD: Normocephalic, atraumatic. EYES: PERRLA and EOMI. ENT: Nares clear, no rhinorrhea or epistaxis. Mucous membranes moist. Oropharynx without tonsillar hypertrophy exudate or other lesions. Bilateral TMs pearly montero nonbulging NECK: Supple. No adenopathy or masses. No carotid bruits or JVD CHEST: Clear to auscultation. No respiratory distress. No wheezes rales or rhonchi HEART: Regular rate and rhythm. No murmur heard. Normal peripheral pulses. ABDOMEN: Soft, nontender, nondistended, normal active bowel sounds. EXTREMITIES: Normal range of motion. No edema. SKIN: There is erythema surrounding the hair follicles to the abdomen extremities x4. NEURO: No focal deficits. Alert and oriented x3. PSYCH: Normal mood and affect. Course Course Emergency Course: This is a 49-year-old male who presented for evaluation of a rash extremities x4 in abdomen. He is unclear with that this is related to poison pilar. Will treat as such with prednisone taper. Will also add cephalexin as he has evidence of folliculitis. Follow-up with primary provider. Go to the ER for worsening symptoms. Patient in agreement with plan care. Level of Care: Express Care Visit Vital Signs Vital signs: Vital Signs Temperature 36.9 C 01/12/25 09:38 Pulse Rate 77 01/12/25 09:38 Respiratory Rate 20 01/12/25 09:38 Blood Pressure 108/67 01/12/25 09:38 Pulse Oximetry 100 01/12/25 09:38 Oxygen Delivery Room Air 01/12/25 09:38 Temperature 36.9 C 01/12/25 09:38 Pulse Rate 77 01/12/25 09:38 Respiratory Rate 20 01/12/25 09:38 Blood Pressure 108/67 01/12/25 09:38 Pulse Oximetry 100 01/12/25 09:38 Oxygen Delivery Room Air 01/12/25 09:38 Medical Decision Making Vital Signs Vital Signs: Vital Signs Temperature 36.9 C 01/12/25 09:38 Pulse Rate 77 01/12/25 09:38 Respiratory Rate 20 01/12/25 09:38 Blood Pressure 108/67 01/12/25 09:38 Pulse Oximetry 100 01/12/25 09:38 Oxygen Delivery Room Air 01/12/25 09:38 Temperature 36.9 C 01/12/25 09:38 Pulse Rate 77 01/12/25 09:38 Respiratory Rate 20 01/12/25 09:38 Blood Pressure 108/67 01/12/25 09:38 Pulse Oximetry 100 01/12/25 09:38 Oxygen Delivery Room Air 01/12/25 09:38 Discharge Plan Discharge Clinical Impression: Folliculitis Patient Disposition: Home, Self-Care Condition: Stable Instructions: Antibiotic Form, Folliculitis (ED) Patient Language: Bhutanese Prescriptions: New prednisone 20 mg tablet See Rx Instructions .ROUTE .COMPLEX Qty: 18 0RF Rx Instructions: 2 tabs po daily x 5 days, then 1 tab po daily x 5 days, then 1/2 tab po daily x 6 days cephalexin 500 mg capsule 500 mg PO Q6H Qty: 40 0RF No Action buspirone 10 mg tablet aspirin [Adult Aspirin Regimen] 81 mg tablet,delayed release (DR/EC) 81 mg PO DAILY Qty: 90 0RF cholecalciferol (vitamin D3) 1,250 mcg (50,000 unit) capsule 1,250 mcg PO DAILY Qty: 90 0RF amlodipine-benazepril 5-20 mg capsule 1 cap PO DAILY Qty: 60 0RF Rx Instructions: Patient is due for an appt. metoprolol succinate 25 mg tablet extended release 24 hr 25 mg PO DAILY Qty: 60 0RF Rx Instructions: Patient is due for an appt. atorvastatin 80 mg tablet See Rx Instructions .ROUTE .COMPLEX Qty: 90 1RF Dose Instruction: TAKE 1 TABLET BY MOUTH DAILY Rx Instructions: TAKE 1 TABLET BY MOUTH DAILY pantoprazole 40 mg tablet,delayed release (DR/EC) 40 mg PO QAM Qty: 90 1RF divalproex [Depakote ER] 500 mg tablet extended release 24 hr 500 mg PO DAILY 90 Days Qty: 90 1RF Follow-up/Referrals: Anju Jiménez [Other] Time of Disposition: 10:07
== END 2025-01-12 10:13 | disposition home or self-care (01) ==
PROVIDERS: Emergency Provider Nurse Practitioner
DX: L73.9 Follicular disorder, unspecified (principal); K21.9 Gastro-esophageal reflux disease without esophagitis; I10 Essential (primary) hypertension; E78.2 Mixed hyperlipidemia; Z85.6 Personal history of leukemia; Z85.828 Personal history of other malignant neoplasm of skin
CPT/HCPCS: 99213; G0463

== ENCOUNTER 2025-03-20 17:02 | Emergency (ER) | payer OTHER, SELFPAY ==
--- OUTSIDE RECORDS SUMMARY | 2025-03-20 17:06 | XMS_ITS | Encounter Summary ---
Author Organization [facility] Address [address] [place] [address] Phone Care Team Providers Care Clinical Athletic Instructor Name Role Phone Day Stanley MD Primary Care Provider [phone] Aguilar Medel MD, Jhon Renae Primary Care Provider Adolph Guajardo MD Unavailable [phone] Encounter Details Date Type Department Care Team (Late st Contact Info) Description 09/23/2017 Orders Only [facility] ProviderCarlos MD [address] [id number] Social History Tobacco Use Types Packs/Day Years Used Date Smoking Tobacco: Never Smokeless Tobacco: Never Alcohol Use Standard Drinks/Week Comments No 0 (1 standard drink = 0.6 oz pur e alcohol) Sex and Gender Information Value Date Recorded Sex Assigned at Not on file Legal Sex Male 11:50 PM DIRECTOR COLLEGE Gender Identity Male 10/28/2020 2:30 PM DIRECTOR COLLEGE Sexual Orientation Straight 10/28/2020 2: 30 PM DIRECTOR COLLEGE documented as of this encounter Plan of Treatment Not on file documented as of this encounter Procedures Procedure Name Priority Date/Time Associated Diagnosis Comments DISCHARGE LABORATORY CUMULATIVE REPORT 09/23/2017 12:00 AM DIRECTOR COLLEGE documented in this encounter Results * DISCHARGE LABORATORY CUMULATIVE REPORT (09/23/2017 12:00 AM DIRECTOR COLLEGE) Narrative 09/23/2017 12:00 AM DIRECTOR COLLEGE Ordered by an unspecified provider. Historical Provider LAB BLOOD ORDERABLES Melissa l Result documented in this encounter Visit Diagnoses Not on filedocumented in this encounter Additional Health Concerns Infection Onset Date Last Indicated Resolved Time MRSA 04/03/2018 04/03/2018 06/09/2021 5:00 AM CDT documented as of this encounter Care Teams Clinical Athletic Instructor Relationship Specialty Start Date End Date Day Stanley MD [address] [place] [address] PCP - General 09/18/17 09/24/17 [place] [address] [place] [address] PCP - General 09/25/17 Adolph Guajardo MD [address] [place] [address] [place] [address] Consulting Physician Neurology 12/29/18 documented as of this encounter
--- OUTSIDE RECORDS SUMMARY | 2025-03-20 17:06 | XMS_ITS | Clinical Summary ---
Author Organization [facility] [employer] Address [address] [place] [address] Care Team Providers Care Supervisor Drapery Hanging Name Role Phone Unavailable Primary Care Provider Unavailabl e Source Comments [facility],non-owned Affiliates and Associated Physician Practices is amultiple site organization consisting of ambulatory clinics and hospital sitesin [place], [place], [place] and [place]. This disclosure is being madepursuant to the Care Everywhere program and may not contain all information available regarding this patient. Last updated 18.[facility] [employer] Allergies No known active allergies Medications * Be aware that medications may not be up to date on this document. Alwaysverify current medications with the patient. amLODIPine-benaz epril (LOTREL) 5-20 MG capsule 12/28/2017 Act jamie atorvastatin (LIPITOR) 40 MG tablet 08/16/2017 Active pantoprazole EC (PROTONIX) 40 MG tablet Take 40 mg by mouth Active ASPIRIN 81 PO Active Social History Tobacco Use Types Packs/Day Years Used Date Smoking Tobacco: Never Smokeless Tobacco: Never Tobacco Cessation:Counseling Given: Yes Sex and Gender Information Value Date Recorded Sex Assigned at Not on file Legal Sex Male 6:32 AM COURSE INSTRUCTOR Gender Identity Not on file Sexual Orientation Not on file Last Filed Vital Signs Vital Sign Reading Time Taken Comments Blood Pressure 128/76 11/21/2019 12:19 PM COURSE INSTRUCTOR Pulse 79 11/21/2019 12:19 PM COURSE INSTRUCTOR Temperature 37.5 C (99.5 F) 11/21/2019 12:19 PM COURSE INSTRUCTOR Respiratory Rate 16 11/21/2019 12:19 PM COURSE INSTRUCTOR Oxygen Saturation 98% 11/21/2019 12:19 PM COURSE INSTRUCTOR Inhaled Oxygen Concentration - - Weight 124.7 kg (275 lb) 11/21/2019 12:19 PM COURSE INSTRUCTOR Height 182.9 cm (6') 11/21/2019 12:19 PM COURSE INSTRUCTOR Body Mass Index 37.3 11/21/2019 12:19 PM COURSE INSTRUCTOR Plan of Treatment Health Maintenance Due Date [...] VACCINE (1 - 2023-2 5 season) 2024 DEPRESSION SCREENING 10/23/2024 INFLUENZA VACCINE (Season Ended) 2025 ZOSTER VACCINE (1 of 2) 2026 HIB [...] patient's age to complete this topic Insurance [address] [address]
--- OUTSIDE RECORDS SUMMARY | 2025-03-20 17:06 | XMS_ITS ---
Author Organization [facility] Address [address] [place] [address] Phone Care Team Providers Care Counseling Center Manager Name Role Phone Aguilar Medel MD, Jhon Renae Primary Care Provider Adolph Guajardo MD Unavailable [phone] Active Problems Problem Noted Date Diagnosed Date [...]
--- OUTSIDE RECORDS SUMMARY | 2025-03-20 17:06 | XMS_ITS | Encounter Summary ---
Author Organization [facility] Address [address] [place] [address] Phone Care Team Providers Care Family Nurse Practitioner Name Role Phone Anju Jiménez APRN, CNP Primary Care P rovider Brandon Almanza MD Unavailable [phone] Reason for Visit * Reason Comments Medication Refill Encounter Details Date Type Department Care Team (Late st Contact Info) Description 02/03/2024 Refill [facility] - Primary Care - [place] [address] [place] [address] Anju Jiménez APRN, CNP [address] [place] [address] Medication Refill Social History Tobacco Use Types Packs/Day Years Used Date Smoking Tobacco: Never Smokeless Tobacco: Never Alcohol Use Standard Drinks/Week Comments Never 0 (1 standard drink = 0.6 oz pur e alcohol) [facility] Utilities Answer Date Recorded In the past 12 months has [employer], gas, oil, or water company threatened to [...] often do you attend chur ch or muslim services? 1 to 4 times per year 12/22/2023 Do you belong to any clubs o r organizations such as episcopalian groups, unions, fraternal or athletic groups, or [...] place to sleep or slept in a assisted (including now)? No 12/22/2023 Education Answer Date Recorded What is the highest level of school you have completed or the highest degree you have received? Associate degree: occupational, technical, or vocational program 03/06/2023 Sexually Active Control Partners Comments Not Currently Female Sex and Gender Information Value Date Recorded Sex Assigned at Male 12/26/2023 4:03 PM ASTROBIOLOGIST Legal Sex Male 11:25 PM CDT Gender Identity Male 12/26/2023 4:03 PM ASTROBIOLOGIST Sexual Orientation Straight 12/26/2023 4: 03 PM ASTROBIOLOGIST Occupation Industry Job Start Date Job End Date [employer] Not on file Not on file Not on file documented as of this encounter Miscellaneous Notes * Telephone Encounter - Nilesh Elizabeth RN - 02/05/2024 1:36 PM CDT Medication(s) refilled and signed per [facility] Chronic Medication Refill Standing Order [...] Dept 12/22/23 Office Visit Romaine Matos, PAC [facility] 09/18/23 Office Visit Anju Jiménez, [place] FARMER, ENVIRONMENTAL TECHNICIAN [facility] 03/13/23 Office Visit Anju Jiménez APRN, CNP [facility] Showing recent visits within past 365 days and meeting all other requirements Future Appointments Date Type Provider Dept 03/19/24 Appointment Lab, [facility] 03/26/24 Appointment Anju Jiménez APRN, CNP [facility] Showing future appointments within next 90 days and meeting all other requirements documented in this encounter Plan of Treatment Not on file documented as of this encounter Goals Goal Patient Goal Type Associated Problems Recent Progress Patient-Stated? Author I need a place to talk about the divorce and what happened. Behavioral Health On track( 024 9:22 AM ASTROBIOLOGIST) Yes Nelly Mendieta LCSW Note: Goal/Objective: Improve coping with pending separation/divorce. Anticipated Time Frame for Goal Completion: 6 months Goal Reviewed with: patient Readiness to change: Ready to change Department associated with goal: [facility] Steps to achieve [...] documented as of this encounter Care Teams Family Nurse Practitioner Relationship Specialty Start Date End Date Anju Jiménez APRN, CNP [address] [place] [address] PCP - General Advanced Practice Nurse 02/17/21 Brandon Almanza MD [address] [id number] Consulting Physician General Surgery 04/05/22 documented as of this encounter
--- OUTSIDE RECORDS SUMMARY | 2025-03-20 17:06 | XMS_ITS | Clinical Summary ---
Author Organization [facility] Address [address] [address] [place] [address] Phone Care Team Providers Care Garage Laborer Name Role Phone Aguilar Medel MD, Jhon Renae Primary Care Provider Adolph Guajardo MD Unavailable [phone] Allergies No known active allergies Medications aspirin [...] mouth daily 3 Active cholecalciferol (VITAMIN D-3) 83995 unit tablet Take 1,250 mcg by mouth [...] on file Legal Sex Male 11:50 PM AG SERVICE MANAGER Gender Identity Male 10/28/2020 2:30 PM AG SERVICE MANAGER Sexual Orientation Straight 10/28/2020 2: 30 PM AG SERVICE MANAGER Obstetrics History Last Filed Vital Signs Vital [...] ( season) 2024 12/31/2020, 12/03/2020 Influenza Vaccine (Season Ended) 2025 07/20/2023, 07/28/2022, 07/29/2021, Additional history exists DTaP/Tdap/Td Vaccine (2 - Td or Tdap) 02/17/2031 02/17/2021 Pneumococcal vaccine <65 Aged Out No longer eligible based on patient's age to complete this topic Insurance [facility] CHOICE PLUS [facility] H[facility]/PPO Address: [place] [address] [facility] Advance Directives For more information, please contact: [phone] * Full Code (Latest Code Status on File) Date Activated Date Inactivated Comments 12/27/2018 10:07 PM 12/29/2018 6:56 PM Care Teams Garage Laborer Relationship Specialty Start Date End Date Jhon Sheikh Jr., MD [address] [place] [address] PCP - General 09/25/17 Adolph Guajardo MD [address] [place] [address] [place] [address] Consulting Physician Neurology 12/29/18
--- OUTSIDE RECORDS SUMMARY | 2025-03-20 17:06 | XMS_ITS | Clinical Summary ---
Author Organization [facility] Address [address] [place] [address] Phone Care Team Providers Care Election Supervisor Name Role Phone Anju Jiménez APRN, MEREDITH Primary Care P rovider Brandon Almanza MD Unavailable [phone] Allergies No known active allergies Medications aspirin EC 81 MG Tablet Delayed Response Take 81 mg by mouth daily. Active Cholecalciferol (VITAMIN D PO) Take 1 Tablet by mouth once a week. Active Trintellix 20 MG Tablet Take 1 Tablet by mouth daily. 01/05/20 22 Active cetirizine (ZyrTEC) 10 MG TabletIndication s:Irritant contact dermatitis due to plants, except food Take 1 Tablet by mouth daily. 01/08/20 24 Active amLODIPine-benaz epril (LOTREL) 5-20 MG CapsuleIndicatio ns:Essential hypertension,TIA (transient ischemic attack) TAKE 1 CAPSULE BY MOUTH NIGHTLY 90 Capsule 12/03/19 25 Active pantoprazole (PROTONIX) 40 MG Tablet Delayed Response Take 1 tablet by mouth once daily 90 Tablet 12/09/19 25 Active busPIRone (BUSPAR) 10 MG Tablet Take 1 Tablet by mouth 2 times daily. 270 Tablet 1 12/16/19 25 Active metoprolol Succinate (TOPROL-XL) 50 MG TABLET SR 24 HRIndications:Es sential hypertension Take 1 tablet by mouth once daily 90 Tablet 02/01/20 25 Active atorvastatin (LIPITOR) 80 MG TabletIndication s:Essential hypertension,TIA (transient ischemic attack) TAKE 1 TABLET BY MOUTH EVERY DAY 90 Tablet 03/18/20 25 Active atorvastatin (LIPITOR) 80 MG TabletIndication s:Essential hypertension,TIA (transient ischemic attack) Take 1 Tablet by mouth daily. 90 Tablet 12/16/19 25 025 Discontinued Active Problems Problem Noted Date Diagnosed Date [...] Encounters Date Type Department Care Team Description 03/18/2025 Refill [facility] - [address] [address] Anju Jiménez APRN, MEREDITH Medication Refill 01/31/2025 Refill [facility] - [address] [address] Anju Jiménez APRN, TURBINE SUBASSEMBLER Medication Refill from Last 3 Months Immunizations [...] drink = 0.6 oz pur e alcohol) [facility] Office Centerities Answer Date Recorded In the past 12 months has e [employer], gas, oil, or water [employer] threatened to shut off services in your [...] 03/24/2024 How often do you attend chur or mandaen services? Never 03/24/2024 Do you belong to any clubs o r organizations such as sikh groups, unions, fraternal or athletic groups, or [...] Total Score - Questions 1-9 5 04/2021 [facility] - Occupational [...] place to sleep or slept in a prison (including now)? No 03/24/2024 Education Answer Date Recorded What is the highest level of school you have completed or the highest degree you have received? Associate degree: occupational, technical, or vocational program 03/06/2023 Sexually Active Control Partners Comments Not Currently Female Sex and Gender Information Value Date Recorded Sex Assigned at Male 12/26/2023 4:03 PM MANAGER MALL Legal Sex Male 11:25 PM CDT Gender Identity Male 12/26/2023 4:03 PM MANAGER MALL Sexual Orientation Straight 12/26/2023 4: 03 PM MANAGER MALL Occupation Industry Job Start Date Job End Date [employer] Not on file Not on file [...] Additional history exists Hepatitis B Immunization Discontinued Human Papillomavirus (HPV) Immunization Aged Out No longer eligible based on patient's age to complete this topic Meningococcal Immunization (ACWY) Aged Out No longer [...] Behavioral Health On track( 024 9:22 AM MANAGER MALL) Yes Nelly Mendieta LCSW Note: Goal/Objective: Improve coping with pending separation/divorce. Anticipated Time Frame for Goal Completion: 6 months Goal Reviewed with: patient Readiness to change: Ready to change Department associated with goal: [facility] Steps to achieve goal: [...] HEPATITIS C ANTIBODY Routine 09/11/2023 8:04 AM MANAGER MALL Encounter for HCV screening test for low risk patient from Last 3 Months or Most Recently Relevant to Health Maintenance Results * HEPATITIS C ANTIBODY (09/11/2023 8:04 AM MANAGER MALL) hepatitis C antibody 0.09 <1 S/[facility] ARCH [id number] B 09/11/2023 9:14 PM MANAGER MALL [facility] Comment: Signal/Cutoff ratio < 0.79 is Nondetected Signal/Cutoff ratio 0.80-0.99 is Grayzone Signal/Cutoff ratio > 0.99 is Detected Supplemental assays are recommended if signal/cutoff ratio is >/=1.00. Signal/cutoff ratio result >/= 5.00 is 97% predictive of positivity for recombinant immunoblot assay (RIBA) and will be reported to the [place] Department of Public [facility] as required. Blood Venipuncture / Unknown 09/11/2023 8:04 AM MANAGER MALL 09/11/2023 8:04 AM MANAGER MALL Anju Jiménez SHARE DAIRY FARMER, TURBINE SUBASSEMBLER CHEMISTRY ORDER TYREE Final Result [facility] [address] [place] [address], from Last 3 Months or Most Recently Relevant to Health Maintenance Insurance [employer] Care Teams Election Supervisor Relationship Specialty Start Date End Date Anju Jiménez APRN, TURBINE SUBASSEMBLER [address] [place] [address] PCP - General Advanced Practice Nurse 02/17/21 Brandon Almanza MD [address] [phone] Consulting Physician General Surgery 04/05/22
--- OUTSIDE RECORDS SUMMARY | 2025-03-20 17:06 | XMS_ITS | Patient Health Record ---
Author Organization [facility] Address [address] [place] [address] Care Team Providers Care Full Fashioned Garment Knitter Name Role Phone Gilberto Woods Primary Care Provider [phone] Reason For Referral No Information Immunizations Vaccine Route Administration Date Status Comme nts COVID-19 Moderna 1ST IM Intramuscular 12/03/2020 Administered EUA date 0. Screening reviewed and consent signed. Patient tolerated well. COVID-19 Moderna 2nd IM Intramuscular 12/31/2020 Administered Plan Of Treatment No Information Insurance Providers Payer Name Payer Address Payer Phone Subscriber Number Group Number Insured Name Patient Relationship to Insured Coverage Start Date Coverage End Date [facility] [address] [place] [address] [id number] Damian Ta Self - patient is the insured 1
--- OUTSIDE RECORDS SUMMARY | 2025-03-20 17:06 | XMS_ITS | Referral Summary ---
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 Sexual Orientation Straight 10/28/2020 2: 30 PM ELECTRICIAN HELPER POWERHOUSE Last Filed Vital Signs Vital Sign Reading [...] Plan of Treatment Not on file Insurance [facility] CHOICE PLUS [facility] H[facility]/PPO Address: [address] [address] [place] [address] [facility] [employer] [facility] [employer] Advance Directives For more information, please contact: [phone] * Full Code (Latest Code Status on File) Date Activated Date Inactivated Comments 12/27/2018 10:07 PM 12/29/2018 6:56 PM Care Teams Pilot Plant Supervisor Relationship Specialty Start Date End Date Jhon Sheikh Jr., MD [address] [place] [address] PCP - General 09/25/17 Adolph Guajardo MD [address] [place] [address] [address] [place] [address] Consulting Physician Neurology 12/29/18
[2025-03-20 17:14] VITALS: BP 141/85; PULSE 64; RESP 18; TEMP 36.5; O2SAT 100
--- NOTE | 2025-03-20 17:43 | ED_ITS ---
HPI - Skin/Abscess/Foreign Bdy General Chief complaint: Skin/Abscess/Foreign Body Stated complaint: skin irritation left arm Time Seen by Provider: 03/20/25 17:43 Source: patient Mode of arrival: ambulatory Limitations: no limitations History of Present Illness HPI narrative: 49-year-old male presented for complaint of poison eileen to the left arm. Onset 2 weeks. He says it no longer itches but is not improving and going away like he expected. Says the site is still red. He has applied calamine and hydrocortisone without much improvement. Denies lip, tongue, or throat swelling, shortness of breath or wheezing. Denies changes to soap, detergent, lotion, or any other exposures. No one else in the house or any contacts with similar symptoms. Related Data Home Medications ?Medication ?Instructions ?Recorded ?Confirmed ?Last Taken ?Type buspirone 10 mg tablet mg 01/12/25 Unknown History Allergies Allergy/AdvReac Type Severity Reaction Status Date / Time No Known Allergies Allergy Verified 03/20/25 17:18 Review of Systems Review of Systems: CONSTITUTIONAL: Denies body aches, fever, chills, or sweats. EYES: Denies visual changes, redness, or discharge. ENT: Denies rhinorrhea, congestion CARDIOVASCULAR: Denies chest pain, palpitations, or edema. RESPIRATORY: Denies cough or dyspnea. GASTROINTESTINAL: Denies abdominal pain, nausea, vomiting, or diarrhea. SKIN: per HPI MUSCULOSKELETAL: Denies back pain, joint pain, or myalgia. NEUROLOGIC: Denies headache, numbness, tingling, or weakness. 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 Leukemia Basal cell carcinoma, forehead Essential (primary) hypertension Mixed hyperlipidemia FHx: factor V Leiden mutation Outbursts of anger Surgical History Surgical History S/P Mohs surgery for basal cell carcinoma Family History Family History Mother Hypertension Father Family history of diabetes mellitus in first degree relative Other FHx: factor V Leiden mutation Social History Social History Smoking status: Never smoker Alcohol intake: never Substance use: never Gender identity (if verbalized by the patient): Male Comments At time of signature, I have reviewed and agree with nursing past medical, surgical, social and family history unless otherwise noted. Please see nursing chart for further information. There is no relevant family history pertinent to the presenting complaint Exam Narrative: GENERAL: Well-appearing HEAD: Normocephalic, atraumatic. EYES: conjunctivae clear, and EOMI. ENT: Mucous membranes moist. Oropharynx without edema, erythema or lesions. NECK: Supple. No lymphadenopathy CHEST: Clear to auscultation. HEART: Regular rate and rhythm. SKIN: Warm, dry. left AC with 4 cm area of erythematous vesicles c/w contact dermatitis. Nontender, no drainage. NEURO: Alert and oriented x3. Course Course Emergency Course: Patient is aware of diagnosis, understands and agrees to treatment plan. Anticipatory guidance given. Patient agrees to follow-up as directed and is aware of reasons to seek care at the emergency department. Portions of this record may have been created with voice recognition software Level of Care: Express Care Visit Vital Signs Vital signs: Vital Signs Temperature 97.7 F 03/20/25 17:14 Pulse Rate 64 03/20/25 17:14 Respiratory Rate 18 03/20/25 17:14 Blood Pressure 141/85 H 03/20/25 17:14 Pulse Oximetry 100 03/20/25 17:14 Oxygen Delivery Room Air 03/20/25 17:14 Temperature 97.7 F 03/20/25 17:14 Pulse Rate 64 03/20/25 17:14 Respiratory Rate 18 03/20/25 17:14 Blood Pressure 141/85 H 03/20/25 17:14 Pulse Oximetry 100 03/20/25 17:14 Oxygen Delivery Room Air 03/20/25 17:14 Reviewed MDM - Skin/Abscess/Foreign Bdy MDM Narrative Medical decision making narrative: Discussed physical exam findings. Advised supportive measures and signs/symptoms to go to the ER. Pt is appropriate for outpt treatment and f/u. Differential Diagnosis Differential diagnosis: Likely abscess of skin or subcutaneous tissue, viral exanthem, dermatophytosis, urticaria, herpes zoster, cellulitis, eczema, insect bites, impetigo and contact dermatitis Discharge Plan Discharge Clinical Impression: Contact dermatitis Patient Disposition: Home Condition: Stable Instructions: Antibiotic Form, Poison Eileen (ED) Additional Instructions: Take steroids as directed. Benadryl every 8 hours as needed or you can take Zyrtec/Claritin You can apply hydrocortisone,Calamine, IvyDry, or Benadryl cream as needed Cool compresses to the sites of itching, avoid hot water. Avoid scratching to reduce the risk of infection Follow up with your primary care provider as needed in 1 week Go to the ER for worsening symptoms or concerns (lip, tongue, throat swelling/itching, trouble breathing etc) Patient Language: Kiswahili Prescriptions: New prednisone 20 mg tablet 40 mg PO DAILY 5 Days Qty: 10 0RF No Action buspirone 10 mg tablet aspirin [Adult Aspirin Regimen] 81 mg tablet,delayed release (DR/EC) 81 mg PO DAILY Qty: 90 0RF cholecalciferol (vitamin D3) 1,250 mcg (50,000 unit) capsule 1,250 mcg PO DAILY Qty: 90 0RF amlodipine-benazepril 5-20 mg capsule 1 cap PO DAILY Qty: 60 0RF Rx Instructions: Patient is due for an appt. metoprolol succinate 25 mg tablet extended release 24 hr 25 mg PO DAILY Qty: 60 0RF Rx Instructions: Patient is due for an appt. atorvastatin 80 mg tablet See Rx Instructions .ROUTE .COMPLEX Qty: 90 1RF Dose Instruction: TAKE 1 TABLET BY MOUTH DAILY Rx Instructions: TAKE 1 TABLET BY MOUTH DAILY pantoprazole 40 mg tablet,delayed release (DR/EC) 40 mg PO QAM Qty: 90 1RF divalproex [Depakote ER] 500 mg tablet extended release 24 hr 500 mg PO DAILY 90 Days Qty: 90 1RF Follow-up/Referrals: Tino,Anju Morrison APN [Primary Care Provider] - Time of Disposition: 17:48
== END 2025-03-20 17:51 | disposition home or self-care (01) ==
PROVIDERS: Emergency Provider Nurse Practitioner Family; PCP Nurse Practitioner
DX: L25.9 Unspecified contact dermatitis, unspecified cause (principal); K21.9 Gastro-esophageal reflux disease without esophagitis; I10 Essential (primary) hypertension; E78.2 Mixed hyperlipidemia; Z85.6 Personal history of leukemia; Z85.828 Personal history of other malignant neoplasm of skin
CPT/HCPCS: 99213; G0463

== ENCOUNTER 2025-05-14 07:04 | Outpatient (CLI) | payer OTHER, SELFPAY ==
[2025-05-14 08:09] LABS: Hematocrit 46.9 % (42.0-52.0); Hemoglobin 15.2 g/dL (14.0-18.0); Immature Granulocyte Percent A 0.6 % (0-0.5); Lymphocytes Absolute Auto 2.11 K/mm3 (0.9-3.2); Mean Corpuscular HGB Conc 32.4 g/dl (32-36); Mean Corpuscular Hemoglobin 29.3 pg (26-34); Mean Corpuscular Volume 90.4 fl (80-100); Nucleated Red Blood Cells Absolute Auto 0.000 K/mm3 (0.0-0.012); Nucleated Red Blood Cells Perc 0.0 % (0.0-0.2); Platelet Count Result 219 k/mm3 (150-375); Red Blood Count 5.19 M/mm3 (4.6-6.20); White Blood Count 7.1 K/mm3 (4.5-10.0)
[2025-05-14 08:09] LABS: Add Urine Microscopic? YES; Appearance Urine Cloudy (Clear); Glucose Urine UA Negative (Negative); Leukocyte Esterase Ur Trace LEU/UL (Negative); Nitrate Urine Negative (Negative); Non Pathogenic Casts 0-2; Specific Grav Ur 1.013 (1.001-1.035)
[2025-05-14 08:12] LABS: Alanine Aminotransferase 42 U/L (6-50); Albumin Level 4.2 g/dL (3.5-5.1); Alkaline Phosphatase 85 U/L (38-126); Anion Gap 7 mmol/L (4-12); Aspartate Amino Transferase 36 U/L (17-59); Bilirubin,Total 1.5 mg/dL (0.2-1.3); Blood Urea Nitrogen 11 mg/dL (9-20); Calcium 9.2 mg/dL (8.4-10.2); Carbon Dioxide 29 mmol/L (22-30); Chloride 102 mmol/L (98-107); Cholesterol 123 mg/dL (0-200); Estimated Glomerular Filt Rate > 60; Glucose 94 mg/dL (65-110); HDL Direct 37 mg/dL; Potassium 4.4 mmol/L (3.4-5.0); Sodium 138 mmol/L (137-145); Total Protein 7.4 g/dL (6.3-8.2); Triglycerides 72 mg/dL (<150)
[2025-05-14 08:44] LABS: Prostate Specific Antigen 0.8 ng/mL (< OR = 4.0); Thyroid Stimulating Hormone 0.681 uIU/mL (0.465-4.680)
[2025-05-14 08:45] LABS: Hemoglobin A1C 5.4 % (<5.7)
[2025-05-14 09:03] LABS: Vitamin B12 639.0 pg/mL (239-931)
[2025-05-17 04:07] LABS: Free Testosterone (Direct) 6.6 pg/mL (6.8-21.5)
== END 2025-05-14 07:05 | disposition home or self-care (01) ==
LOC: ANHLAB 07:05
PROVIDERS: PCP Family Medicine; Visit Provider Family Medicine
DX: E78.2 Mixed hyperlipidemia (principal); I10 Essential (primary) hypertension; E55.9 Vitamin D deficiency, unspecified; F41.9 Anxiety disorder, unspecified; C95.91 Leukemia, unspecified, in remission; G47.33 Obstructive sleep apnea (adult) (pediatric); Z00.00 Encounter for general adult medical examination without abnormal findings; Z12.5 Encounter for screening for malignant neoplasm of prostate
CPT/HCPCS: 36415; 80053; 80061; 81001; 82172; 82306; 82607; 83036; 84153; 84402; 84443; 85025; G0103

== ENCOUNTER 2025-09-30 08:53 | Outpatient (CLI) | payer OTHER, SELFPAY | END 2025-09-30 08:54 | disposition home or self-care (01) | LOC: ANHAUDIO 08:54 | PROVIDERS: PCP Family Medicine; Visit Provider Family Medicine | DX: H90.3 Sensorineural hearing loss, bilateral (principal) | CPT/HCPCS: 92557; 92567 ==